=== PATIENT | female | born 2000 | race Caucasian/White ===

== ENCOUNTER 2023-02-27 15:27 | Emergency (ER) | payer MEDICAID, OTHER ==
[~2023-02-27] VITALS: Ht 157.5 cm; Wt 74.0 kg
[2023-02-27 15:45] VITALS: BP 122/52; PULSE 79; RESP 20; TEMP 98.2; O2SAT 100
[2023-02-27] MEDS ORDERED: ACETAMINOPHEN 325MG TABLET PO NR (17:30)
[2023-02-27] MEDS ORDERED: TETANUS, DIPHTHERIA, PERTUSSIS VAC/PF 0.5ML (>10YR OLD) IM ONE (18:30)
== END 2023-02-27 20:18 | disposition home or self-care (01) ==
LOC: ER 15:27
DX: S89.91XA Unspecified injury of right lower leg, initial encounter (principal); X58.XXXA Exposure to other specified factors, initial encounter; Y93.89 Activity, other specified; Y92.89 Other specified places as the place of occurrence of the external cause; Y99.8 Other external cause status
CPT/HCPCS: 73562; 73590; 70450; 72125; 99284; Z7610; L1830